=== PATIENT | female | born 1975 | race Two or more races ===

== ENCOUNTER 2024-11-07 08:03 | Emergency (ER) | payer OTHER ==
[~2024-11-07] VITALS: Ht 160 cm; Wt 74.8 kg
[2024-11-07] MEDS ORDERED: ALBU18HF2 INH (08:25)
[2024-11-07 08:33] VITALS: BP 152/92; TEMP 98.3; O2SAT 99
== END 2024-11-07 08:33 ==
LOC: ER 08:05
DX: Z02.89 Encounter for other administrative examinations (principal); G47.30 Sleep apnea, unspecified; J45.909 Unspecified asthma, uncomplicated; F32.A Depression, unspecified